=== PATIENT | male | born 1985 | race Two or more races ===

== ENCOUNTER 2019-05-20 16:21 | Emergency (ER) | payer SELFPAY ==
[~2019-05-20] VITALS: Ht 167.6 cm; Wt 65.0 kg
--- NOTE | 2019-05-20 16:42 | NUR ---
pearrl 4 mm neuros grossly intact bp soft map of 65 denies dizziness/nausea/blurry vision/hx of hypotn. med student in room for eval. pt cuffed, rpd at bedside. as
[2019-05-20] MEDS ORDERED: L.E.T SOLUTION TP ONE ×2 (16:54→17:00)
[2019-05-20] MEDS ORDERED: NEOSPORIN OINT. PKT 1 PACKET ONE (16:54)
--- NOTE | 2019-05-20 16:59 | NUR ---
let applied at 1700. plan for clean/chris. as
[2019-05-20 17:49] VITALS: BP 106/66
== END 2019-05-20 17:52 ==
LOC: ED 17:45
DX: S01.81XA Laceration without foreign body of other part of head, initial encounter (principal); F17.200 Nicotine dependence, unspecified, uncomplicated; X58.XXXA Exposure to other specified factors, initial encounter; Y93.89 Activity, other specified; Y92.098 Other place in other non-institutional residence as the place of occurrence of the external cause; Y99.8 Other external cause status
CPT/HCPCS: 12032; 99284

== ENCOUNTER 2020-06-13 21:43 | Emergency (ER) | payer SELFPAY ==
[~2020-06-13] VITALS: Ht 167.6 cm; Wt 64.9 kg
[2020-06-13 21:46] VITALS: BP 146/85
[2020-06-13] MEDS ORDERED: KETOROLAC 30 MG/1 ML IM ONE (22:30)
[2020-06-13] MEDS ORDERED: KETOROLAC 30 MG/1 ML ONE (22:41)
== END 2020-06-14 00:20 | disposition home or self-care (01) ==
LOC: ED 06-14 00:10
DX: S20.212A Contusion of left front wall of thorax, initial encounter (principal); R07.81 Pleurodynia; V89.9XXA Person injured in unspecified vehicle accident, initial encounter; Y93.55 Activity, bike riding; Y92.89 Other specified places as the place of occurrence of the external cause; Y99.8 Other external cause status
CPT/HCPCS: 71101; 96372; 99283; J1885